=== PATIENT | female | born 1970 | race African-American/Black ===

== ENCOUNTER 2018-12-31 18:22 | Inpatient (IN) | payer OTHER ==
[~2018-12-31] VITALS: Ht 180.3 cm; Wt 71.5 kg
[2018-12-31] VITALS (27 sets, daily range): BP systolic 62–114; BP diastolic 21–58
[2018-12-31 18:49] LABS: BE(vivo) -29.8 mmol/L (-2 to +3); HCO3 3.5 mmol/L (22.0-26.0); PO2 VENOUS 49.9 mmHg (35.0-45.0)
[2018-12-31 18:52] LABS: HEMATOCRIT 43.1 % (37.0-47.0); MCH 29.7 pg (26.0-34.0); MCHC 25.5 g/dL (28.0-37.0); MCV 116.1 fL (80.0-100.0); PLATELET COUNT 234 thou/uL (150-400); RBC 3.71 mil/uL (4.20-5.00); RDW 16.9 % (10.5-14.5); WBC 25.3 thou/uL (4.0-11.0)
[2018-12-31 19:03] LABS: BUN 86 mg/dL (7-18); CALCIUM 8.7 mg/dL (8.5-10.1); CHLORIDE 84 mmol/L (98-107); CREATININE 13.5 mg/dL (0.6-1.0); SODIUM 124 mmol/L (136-145)
[2018-12-31 19:07] LABS: ANION GAP 35 mmol/L (7-16)
[2018-12-31 19:11] LABS: CO2 < 5 mmol/L (21-32)
[2018-12-31 19:18] LABS: GLUCOSE 1088 mg/dL (74-106)
[2018-12-31 19:41] LABS: ABSOLUTE NEUTROPHILS 19.5 thou/uL (1.4-8.2); MYELOCYTES 1 %
[2018-12-31 19:42] LABS: ANISOCYTOSIS 1+; BURR CELLS OCCASIONAL; MACROCYTES 3+
[2018-12-31] MEDS ORDERED: ATORVASTATIN CA40 MG PO (19:47)
[2018-12-31] MEDS ORDERED: MAPAP325 MG PO (19:47)
[2018-12-31] MEDS ORDERED: GLUCAGON EMERGEN1 MG SUBQ (19:48)
[2018-12-31] MEDS ORDERED: PEPCID20 MG PO (19:48)
[2018-12-31] MEDS ORDERED: HYDRALAZINE 2525 MG PO (19:49)
[2018-12-31] MEDS ORDERED: LASIX 80 MG TAB80 MG PO (19:50)
[2018-12-31] MEDS ORDERED: ASPIR 8181 MG PO (19:59)
[2018-12-31] MEDS ORDERED: LEVEMIR SUBQ (20:00)
[2018-12-31] MEDS ORDERED: LOPRESSOR100 M1 PO (20:00)
[2018-12-31] MEDS ORDERED: NORVASC5 MG PO (20:01)
[2018-12-31] MEDS ORDERED: NEPHRO-VITE TA0.8 MG PO (20:01)
[2018-12-31] MEDS ORDERED: NOVOLOG100 UNIT/1 SUBQ ×2 (20:02→20:03)
[2018-12-31] MEDS ORDERED: SENSIPAR 30 MG30 M1 PO ×2 (20:03→20:04)
[2018-12-31] MEDS ORDERED: VELTASSA16.8 GM PO (20:04)
[2018-12-31 20:53] LABS: BUN 84 mg/dL (7-18); CHLORIDE 91 mmol/L (98-107); CREATININE 12.8 mg/dL (0.6-1.0)
[2018-12-31 20:55] LABS: ANION GAP 36 mmol/L (7-16)
[2018-12-31 20:57] LABS: SODIUM 132 mmol/L (136-145)
[2018-12-31 20:58] LABS: CO2 < 5 mmol/L (21-32); GLUCOSE 929 mg/dL (74-106)
--- NOTE | 2018-12-31 23:35 | NUR ---
ADMISSION NOTE: PT ON THE ARRIVED ON THE UNIT @ 2024 FROM ED WITH WOLFGANG RN. PT ALERT AND ORIENTED BUT VERY LETHARGIC AND DROWSY. AT THIS TIME, VSS. INSULIN ALREADY INFUSING WHEN PT ARRIVED ON THE UNIT. DR MARIA AT BEDSIDE TO SEE PATIENT. VERBAL ORDER GIVEN TO ME BY DR MRAIA ABOUT NOT STARTING PT ON MAINTENANCE FLUIDS PER DKA PROTOCOL, THAT HE WANTS HIGH SUGARS TO BE TREATED WITH ONLY INSULIN. BP STARTS TO TANK WITH DIALYSIS 70'S/40'S, [address] MARIA, BP UP TO ONLY 80'S/40'S. LEVOPHED GTT STARTED PER DR MARIA ORDERS. WILL CONT TO FOLLOW AND IMPLEMENT ORDERS.
[2019-01-01] VITALS (103 sets, daily range): BP systolic 79–139; BP diastolic 26–84
[2019-01-01 00:45] LABS: MAGNESIUM 1.9 mg/dL (1.8-2.4); PHOSPHORUS 1.8 mg/dL (2.5-4.9)
[2019-01-01 00:47] LABS: ALBUMIN 3.3 g/dL (3.4-5.0); CALCIUM 8.5 mg/dL (8.5-10.1); PHOSPHORUS 1.9 mg/dL (2.5-4.9)
[2019-01-01 00:48] LABS: CREATININE 3.7 mg/dL (0.6-1.0)
[2019-01-01 04:32] LABS: ALBUMIN 3.4 g/dL (3.4-5.0); CALCIUM 8.7 mg/dL (8.5-10.1); PHOSPHORUS 2.7 mg/dL (2.5-4.9); POTASSIUM 3.8 mmol/L (3.5-5.1)
[2019-01-01 04:36] LABS: HEMATOCRIT 31.7 % (37.0-47.0); HEMOGLOBIN 9.7 gm/dL (12.0-15.0); MCH 28.6 pg (26.0-34.0); MCHC 30.7 g/dL (28.0-37.0); RBC 3.4 mil/uL (4.20-5.00); RDW 15.2 % (10.5-14.5); WBC 19.2 thou/uL (4.0-11.0)
[2019-01-01 04:41] LABS: CREATININE 6.4 mg/dL (0.6-1.0)
[2019-01-01 04:44] LABS: MCV 93.1 fL (80.0-100.0)
--- NOTE | 2019-01-01 05:52 | NUR ---
ASSUMED CARE @ 202412/31/18, PT ASSESSMENT AND VSS COMPLETE PER ICU PROTOCOL. PT ALERT AND ORIENTED TO PERSON AND SITUATION, DISORIENTED TO PLACE AND TIME, PT APPEARS TO BE CONFUSED AND CONSTANTLY REPEATS RESPONSES WHEN AWAKE. PT MAKE SENSE INTERMITTENTLY. FENTANYL GIVEN FOR PAIN DURINF THIS SHIFT. PT SR-ST ON THE MONITOR, PT ON LEVOPHED GTT, MAP GOAL>60 LEFT HAND APPEARS TO BE HARD AND FIRM WHEN COMPARED TO THE RIGHT HAND. PT ON RA SATS IN THE HIGH 90'S, NO SIGNS OF SOA. PT APPEARS TO BE ANURIC, PT HAD EMERGENT DIALYSIS LAST NIGHT/ THIS AM. PT IS STILL ON THE INSULIN DRIP, Q1H ACCUCHECKS IN PLACE. PLAN OF CARE- CONT TO MONITOR BS AND BP AND TITRATE DRIPS ACCORDINGLY. CRITICALS CALLED TO [facility] AND DR MARIA GIVEN AN UPDATE ON STATUS THIS AM.
[2019-01-01 07:57] LABS: ALBUMIN 3.5 g/dL (3.4-5.0); CALCIUM 8.8 mg/dL (8.5-10.1); CREATININE 6.6 mg/dL (0.6-1.0); MAGNESIUM 1.9 mg/dL (1.8-2.4); PHOSPHORUS 3.1 mg/dL (2.5-4.9); POTASSIUM 4.4 mmol/L (3.5-5.1)
--- NOTE | 2019-01-01 08:03 | EKG ---
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 : 1970 Requested By: Say Luz Order Number: [id number] MD: Michael Schwartz Measurements Intervals Pettibone Rate: 94 P: 242 MT: 178 QRS: 141 QRSD: 111 T: 3 QT: 397 QTc: 497 Interpretive Statements Sinus rhythm Probable right ventricular hypertrophy Consider electrolyte abnormality Borderline prolonged QT interval Baseline wander in lead(s) V5 No previous ECG available for comparison Electronically Signed On 01-01-2019 8:02:56 MOLD FORMS BUILDER by Michael Schwartz [email or web address] <ELECTRONICALLY SIGNED> By: Michael Schwartz MD, [facility] 01/01/19 0802 1845 1845 Michael Schwartz MD, [facility] /EPI
[2019-01-01 09:00] LABS: PROTIME 10.7 Seconds (9.3-11.4)
[2019-01-01 12:06] LABS: HEPATITIS B SURFACE AG Negative (Negative)
--- NOTE | 2019-01-01 15:19 | NUR ---
CM ASSESSMENT: CASE OPENED FOR DC PLANNING. CLINICAL INFO REVIEWED. PT ADMITTED FROM LTC AT [facility] WITH DKA. PT SOMEWHAT CONFUSED TODAY PER NURSING AND SPOKE WITH PT'S SPOUSE JALIL AVALOS BY PHONE. PT HAS LIVED IN LTC AT FACILITY SINCE JUNE 2018. HX DM UNCONTROLLED, HTN, STROKE AND ESRD HD AT [facility]. AMBULATES WITH WALKER OR USES W/C. PLAN TO RETURN TO [facility] AT DC. DCPLANNER FAXED CLINICAL UPDATE TO FACILITY ADMISSIONS AND SPOKE WITH
--- NOTE | 2019-01-01 16:24 | NUR ---
PATIENT REMAINS AWAKE AND CONFUSED, BUT ABLE TO MAKE NEEDS KNOW. SPOKE WITH PATIENT'S AND HE STATES THAT THIS IS THE PATIENT'S NORMAL MENTATION ESPECIALLY WHEN SHE IS ILL. PATIENT IS STILL ON A LOW DOSE OF LEVOPHED FOR BLOOD PRESSURE SUPPORT. HEART RATE STABLE. PATIENT ON RA WITH SATS IN THE UPPER 90'S AND DENIES ANY RESP DISTRESS. BLOOD SUGARS ARE NOTED AND TREATED ORDERED.PATIENT LEFT ARM IS SWOLLEN/WARM/ AND HARD, FISTULAGRAM SCHEDULED FOR TOMORROW. + BRUIE AND THRILL OF LUE FISTULA. PATIENT ANURIC THIS SHIFT. PATIENT CALLED TO CHECK ON PATIENT. NO FURTHER CONCERNS AT THIS TIME. WILL CONTINUE TO MONITOR AND CARE PER PLAN OF CARE.
[2019-01-02] VITALS (35 sets, daily range): BP systolic 96–139; BP diastolic 40–67
--- NOTE | 2019-01-02 02:47 | NUR ---
PT IS AOX2, CONFUSED. FOLLOW COMMANDS. C/O THROAT PAIN, PAIN MEDS GIVEN. AFEBRILE. ON LEVOPHED FOR BP SUPPORT. TITRATING TO KEEP MAP 60. ANURIC. NPO AFTER MIDNIGHT FOR IR PROEDURE. PT EDUCATED ABOUT NPO STATUS. SLOWLY PROGRESSING TOWARDS GOALS. WILL CONTINUE TO MONITOR.
[2019-01-02 05:26] LABS: ABSOLUTE NEUTROPHILS 9.6 thou/uL (1.4-8.2); BASOPHILS 0.2 % (0.0-2.0); EOSINOPHILS 0.3 % (0.0-3.0); HEMATOCRIT 32.4 % (37.0-47.0); HEMOGLOBIN 9.8 gm/dL (12.0-15.0); LYMPHOCYTES 11.5 % (24.0-44.0); MCH 29.2 pg (26.0-34.0); MCHC 30.2 g/dL (28.0-37.0); MCV 96.6 fL (80.0-100.0); MONOCYTES 7.3 % (1.0-8.0); PLATELET COUNT 140 thou/uL (150-400); POLYS 80.7 % (36.0-66.0); RBC 3.35 mil/uL (4.20-5.00); RDW 15.7 % (10.5-14.5); WBC 11.9 thou/uL (4.0-11.0)
[2019-01-02 06:02] LABS: ALBUMIN 3.2 g/dL (3.4-5.0); CALCIUM 8.7 mg/dL (8.5-10.1); TOTAL BILIRUBIN 0.5 mg/dL (<0.1-1.0); TOTAL PROTEIN 6.4 g/dL (6.4-8.2)
[2019-01-02 06:10] LABS: CREATININE 8.4 mg/dL (0.6-1.0); POTASSIUM 6.7 mmol/L (3.5-5.1)
[2019-01-02 07:21] LABS: LARGE PLATELETS OCCASIONAL
--- NOTE | 2019-01-02 08:03 | NUR ---
CRITICAL LAB VALUES COMMUNICATED TO DR. HASSAN. ORDERS RECIEVED AND IMPLEMENTED. WILL CONTINUE TO MONITOR.
--- NOTE | 2019-01-02 09:03 | NUR ---
Assess for dx DKA. From [facility]. Hx dm, ESRD/dialysis, cva and HTN. BG initially >1000 and have been decreasing. Insulin drip discontinued. On dialysis today. Tolerating meals. Unknown wt hx. Low nutrition risk at this time
--- NOTE | 2019-01-02 12:12 | NUR ---
FOLLOWING FOR DC PLANNING. CLINCIAL INFO REVIEWED. DIALYSIS THIS AM AND WILL HAVE FISTULAGRAM TODAY. PER HOSPITALIST, POSSIBLE WEEKEND DC. 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
--- NOTE | 2019-01-02 14:08 | NUR ---
DCP FAXED DIALYSIS FLOW SHEETS TO [facility] SPOKE WITH HALI IN ADM. THAT ANTICIPATE DC OVER THE WEEKEND. PT. TO HAVE DIALYSIS ON SATURDAY.
--- NOTE | 2019-01-02 14:27 | NUR ---
TO UNIT BY ICU BED AT 1400, ACCOMPANIED BY RNX2. TRANSFERRED TO OUR BED. MAKES NO COMPLAINTS. ORIENTED TO UNIT, ROOM. WILL CONTINUE TO FOLLOW.
--- NOTE | 2019-01-02 15:30 | NUR ---
ASSUMED CARE OF PATIENT AT 0700, PT IS A/O TIMES 3-4. C/O SORE THROAT AND CEPACOL GIVEN. PT HAD DIALYSIS TODAY WITH B/P BEING STABLE DURING THE PROCEDURE. PT TO IR FOR A FISTULOGRAM POST DIALYSIS. ORDERS RECIEVED TO TRANSFER PT OUT OF ICU WHILE PT IS IN IR. REPORT GIVEN TO ACCEPTING NURSE AND IR NOTFIED OF PT TRANSFER. VSS AND PT AFIBRILE WHILE UNDER THIS NURSE CARE.
[2019-01-03 01:07] LABS: ALBUMIN 3.2 g/dL (3.4-5.0); CALCIUM 8.8 mg/dL (8.5-10.1)
[2019-01-03 01:14] LABS: CREATININE 5.9 mg/dL (0.6-1.0)
[2019-01-03 04:29] VITALS: BP 101/61
--- NOTE | 2019-01-03 04:50 | NUR ---
Patient making slow progress towards outcome goals, barely touched dinned, bedtime blood sugars elevated confirmed by labs. Reported to Martin Winn SECURITY OPERATIONS MANAGER with orders for extra insulin and blood sugars every 2 hours and treat per moderate slidind scale until bs + or <250. Patients appetite poor. Getting tired of multiple finger sticks and Lab draws, explained need to patient who expressed understanding. Cepacol lozenges and zofran given for sorethroat and nausea with some relief. Left arm swelling unchanged. Fall precautions in place.
[2019-01-03 05:38] LABS: ALBUMIN 3.3 g/dL (3.4-5.0); CREATININE 6.1 mg/dL (0.6-1.0); PHOSPHORUS 3.6 mg/dL (2.5-4.9); POTASSIUM 4.3 mmol/L (3.5-5.1)
[2019-01-03 08:04] VITALS: BP 137/73
[2019-01-03 11:22] VITALS: BP 132/72
--- NOTE | 2019-01-05 07:36 | HC ---
[facility] [address] [place] [address] CONSULTATION Name: MARIELA MERAZ Room #: 353-P [facility].#: [id number] Admission: 12/31/18 Attend Phys: Berhane Lang MD Discharge: 01/03/19 Date of : 68 Report #: [id number] THIS REPORT FOR: //name// CC: Berhane Castilloadelina Sosa Maria Luisa DATE OF SERVICE: 12/31/2018 NEPHROLOGY CONSULTATION REASON FOR CONSULTATION: End-stage renal disease with critical hyperkalemia. HISTORY OF PRESENT ILLNESS: This is a 48-year-old female who has end-stage renal disease. She lives at [facility] and was to get her usual dialysis at [facility] today. That did not occur. Apparently, she said her blood sugar was too low, so they would not do a dialysis. She ended up coming to the Emergency Room tonight. On admission, she was alertly noted by the Emergency Room staff to be in an abnormal heart rhythm. She was treated with some IV calcium as well as some sodium bicarbonate. Labs were drawn. Since that time, her labs have come back showing a potassium of 9.0, a bicarbonate less than 5, a BUN of 86, creatinine 13.5, and glucose 1088 with a venous blood gas 6.81, pCO2 of 22, pO2 of 49.9 and lactate of 8.69. In talking to the patient, she is a bit obtunded. She says she has been on dialysis for the past 2 years. She has diabetes mellitus as the etiology. She has been dialyzing at [facility] and living at [facility]. She dialyzes using a left upper arm access. When I asked when she last dialyzed since she missed this morning's dialysis, she first said Saturday, which would have been 5 days ago and then she said Saturday, which would have been 2 days ago, but I am uncertain which of those is really the case. PAST MEDICAL HISTORY: Longstanding diabetes mellitus. Also hypertension. She apparently has had a CVA. Also some seizure disorder. She cannot tell me exactly why she lives at [facility] only that her blood sugars are always so labile that she needed care in a Care Center. She is a bit uncertain as to prior surgeries. It looks like she has had a forearm fistula and now a left upper arm graft in place for dialysis access. I do not see much else in the way of scars on her chest or abdomen. MEDICATIONS: Amlodipine 5 mg daily, aspirin 81 mg daily, atorvastatin 40 mg daily, cinacalcet 30 mg 3 days a week, famotidine 20 mg daily, Nephro-Marley 1 daily, furosemide 80 mg b.i.d., hydralazine 50 mg t.i.d., insulin both long and short-acting, metoprolol 100 mg b.i.d., and Veltassa suggesting she has longstanding problems of hyperkalemia. [address] [address] CONSULTATION Name: MARIELA MERAZ Lupe Room #: 353-P [facility] IN M.R.#: [id number] Admission: 12/31/18 Attend Phys: Berhane Lang MD Discharge: 01/03/19 Date of : 68 Report #: [id number] ALLERGIES: DEON INHIBITORS AND SULFA. FAMILY HISTORY: Noncontributory. SOCIAL HISTORY: Lives at [facility] as noted above. REVIEW OF SYSTEMS: She has felt sick in her stomach, cannot clearly tell me if she has had nausea, vomiting or diarrhea. Unaware of dyspnea or cough. Denies pain at this time and again is still somewhat obtunded. PHYSICAL EXAMINATION: GENERAL: A 48-year-old female who does awaken, but is slow to react again mildly obtunded. VITAL SIGNS: Blood pressure 126/48, heart rate is 117 and the monitor now shows a narrow complex QRS, oxygen saturation 100%, temperature 97.9 and respiratory rate 19. HEENT: Shows pupils are equal and reactive. Sclerae nonicteric. Oral mucosa is dry. NECK: Veins are not distended. Neck is supple. CHEST: Clear bilaterally. HEART: Has a regular tachycardia. ABDOMEN: Soft. Bowel sounds are diminished. No distention, tenderness, organomegaly or masses. EXTREMITIES: Show no lower extremity edema. She has a left upper arm AV graft in place, which is pulsatile. IMAGING: Chest x-ray is clear. LABORATORY DATA: Sodium 124, potassium 9.0, chloride 84, bicarbonate 5, BUN 86, creatinine 13.5, glucose 1088 and calcium 8.7. White count 25.3, hemoglobin 11.0, hematocrit 43.1, and platelets 234,000. Differential: 77 neutrophils, 7 monocytes and 1 myelocyte. ASSESSMENT: 1. End-stage renal disease with critical hyperkalemia. I am uncertain why she missed dialysis earlier today, but it obviously put her in a life threatening situation. Her EKG showed widened QRS complexes and high T waves. She got the calcium and the albuterol. We are giving her an amp of bicarbonate now. Her complex has already narrowed, which is a favorable sign. We will be performing emergent hemodialysis on her to help correct her potassium and her bicarbonate. 2. Profound hyperglycemia with severe metabolic acidosis, suspect ketoacidosis. She will need an insulin drip to get this corrected. 3. Metabolic acidosis, some component of DKA certainly some lactic acidosis and some acidosis due to her renal failure. This should start to correct with her dialysis with a normal 35 bicarbonate dialysate. 4. Leukocytosis. She did not have a fever on admission. I do not see any [facility] [address] [place] [address] CONSULTATION Name: MARIELA MERAZ Room #: 353-P [facility] IN [facility].#: [id number] Admission: 12/31/18 Attend Phys: Berhane Lang MD Discharge: 01/03/19 Date of : 68 Report #: [id number] terese signs of infection, but we will need to get blood cultures and certainly screen for sepsis and that will be difficult to differentiate at this point. 5. Prior cerebrovascular accident. PLAN: 1. We have given her some additional IV bicarbonate. 2. We have her on the way to the ICU and we will perform emergent dialysis tonight with 2 potassium dialysate for 4 hour run. We will see how her blood pressure does. I will not plan on any ultrafiltration. 3. Insulin drip. 4. Follow up labs after dialysis. She may well need dialysis again in the morning. 5. Blood cultures. 6. We will follow along closely in the care of this critically ill patient. <ELECTRONICALLY SIGNED> By: Ian Glass MD 01/05/19 0736 10 0306 Ian Glass MD /merle
== END 2019-01-03 17:07 | DRG 252 ==
LOC: ER 18:22 → ICU 19:20 → EROBS 19:20 → ICU 20:07 → TBA 01-01 09:47 → ICU 01-01 09:55 → TBA 01-01 10:00 → ICU 01-01 10:04 → 3W 01-02 13:34
PROVIDERS: Hospitalist; Internal Medicine; Internal Medicine Nephrology; Nurse Practitioner Family; Radiology Vascular & Interventional Radiology; Student in an Organized Health Care Education/Training Program; ADMIT Hospitalist
DX: I87.1 Compression of vein (principal); E11.10 Type 2 diabetes mellitus with ketoacidosis without coma; N18.6 End stage renal disease; E87.1 Hypo-osmolality and hyponatremia; I12.0 Hypertensive chronic kidney disease with stage 5 chronic kidney disease or end stage renal disease; E11.22 Type 2 diabetes mellitus with diabetic chronic kidney disease; E87.5 Hyperkalemia; Z88.2 Allergy status to sulfonamides; G40.909 Epilepsy, unspecified, not intractable, without status epilepticus; E78.5 Hyperlipidemia, unspecified; D72.829 Elevated white blood cell count, unspecified; Z79.899 Other long term (current) drug therapy; Z86.73 Personal history of transient ischemic attack (TIA), and cerebral infarction without residual deficits; Z99.2 Dependence on renal dialysis
CPT/HCPCS: 10078; 10779; 32100

== ENCOUNTER 2021-12-27 19:05 | Inpatient (IN) | payer OTHER ==
[~2021-12-27] VITALS: Ht 180.3 cm; Wt 78.2 kg
--- NOTE | ~2021-12-27 | EMS ---
[facility] [address] [place] [address] EMS Patient Care Report Name: MARIELA MERAZ Room #: 355-P [facility] IN M.R.#: [id number] Admission: 12/27/21 Attend Phys: Nate Lord Discharge: 01/01/22 Date of : 68 Report #: [id number] THIS REPORT FOR: //name// Report Transmitted: 01/03/2022 12:34 EMS Care Summary [place], [place]/[facility] Incident [id number] @ 12/27/2021 18:26 [id number] [place] [address] 116 Patient MARIELA MERAZ Female, 51 Years 1970 Patient Address [address] [place] [address] [address] [place] [address] Patient History End Stage Renal Disease (ESRD),Hyperkalemia,Hyperglycemia,Novel Coronavirus (COVID-19), Patient Allergies Sulfa, Patient Medications Amitriptyline, Levemir, Metoprolol, Atorvastatin, Gabapentin, Novolog, Chief Complaint Malaise Disposition Transported No Lights/[place] Dispatch Reason Sick Person Transported To [facility] Narrative M528 dispatched for a 51 year old female conscious and breathing. Arrive at the scene patient is located inside the care home laying down in bed. Patient [facility] [address] [place] [address] EMS Patient Care Report Name: MARIELA MERAZ Room #: 355-P [facility] IN [facility]#: [id number] Admission: 12/27/21 Attend Phys: Jonyoscar Hadley Risa Discharge: 01/01/22 Date of : 68 Report #: [id number] acknowledges EMS presence is GCS 15, AAOX4. Patient has a patent airway is breathing with strong regular radial pulses present. Skin is pink warm and dry. Staff advises that the patient is weaker than normal and has COVID 19 and is to go to [facility] for further evaluation. Patient is moved to the stretcher and secured in the fielders position using seatbelts and rails. Patient is moved to the ambulance and VS are obtained. Transport is initiated. Assessment conduct is unremarkable. Arrival at the receiving facility patient is offloaded and taken to the ER room. RN is given report and transfer of care is completed and signatures obtained. M528 returns to service Initial Vitals @18:33P: 93,R: 18,BP: 164/84,Pain: 0/10,GCS: 15,Glucose: 270,SpO2: 98,Revised Trauma: 12, @18:39P: 94,R: 18,BP: 146/70,Pain: 0/10,GCS: 15,SpO2: 99,Revised Trauma: 12, Assessments @18:32MENTAL:No Abnormalities,SKIN:No Abnormalities,HEENT:Head/Face: No Abnormalities,Eyes: No Abnormalities,Neck/Airway: No Abnormalities,LUNG SOUNDS:General: No Abnormalities,Left Upper: No Abnormalities,Right Upper: No Abnormalities,Left Lower: No Abnormalities,Right Lower: No Abnormalities,ABDOMEN:General: No Abnormalities,Left Upper: No Abnormalities,Right Upper: No Abnormalities,Left Lower: No Abnormalities,Right Lower: No Abnormalities,PELVIS//GI:No Abnormalities,EXTREMITIES:Left Arm: No Abnormalities,Right Arm: No Abnormalities,Left Leg: No Abnormalities,Right Leg: No Abnormalities,PULSE:Radial: 2+ Normal,NEURO:No Abnormalities, Impression Generalized Weakness Procedures @18:32 ALS Assessment Response: UnchangedSucceeded Timeline 18:22,Call Received 18:22,Dispatch Notified 18:26,Dispatched 18:27,En Route 18:29,On Scene 18:31,At Patient 18:32,ALS Assessment,Response: UnchangedSucceeded, 18:33,BP: 164/84 M,PULSE: 93,RR: 18 R,SPO2: 98 Ox,ETCO2: ,B,PAIN: 0,GCS: [address] [place] [address] EMS Patient Care Report Name: MARIELA MERAZ Room #: 355-P [facility] IN .R.#: [id number] Admission: 12/27/21 Attend Phys: Nate Lord Discharge: 01/01/22 Date of : 68 Report #: [id number] 15, 18:39,BP: 146/70 M,PULSE: 94,RR: 18 R,SPO2: 99 Ox,ETCO2: ,BG: ,PAIN: 0,GCS: 15, 18:41,Depart Scene 18:48,At Destination 18:52,Call Closed Disclaimer v1.1 Copyright 2021 [place]. com. cn This EMS Care Summary contains data elements from the applicable legal record (which may be displayed differently). It is designed to provide pertinent information for the following purposes: continuity of care, clinical quality, and state data reporting. The complete legal record is available to ED staff and administrators of the receiving hospital in [employer] Patient Tracker. All data is provided "as is."
[~2021-12-27 19:05] MED LIST: ASPIR 8181 MG PO; ATORVASTATIN CA40 MG PO; CALCIUM ACETAT667 MG PO; CEFUROXIME250 MG PO; GLUCAGON EMERGEN1 MG SUBQ; HYDRALAZINE 2525 MG PO; LASIX 80 MG TAB80 MG PO; LEVEMIR SUBQ; LOPRESSOR100 M1 PO; LOPRESSOR50 PO; MAPAP325 MG PO; MIDODRINE HCL 55 M1 PO; NEPHRO-VITE TA0.8 MG PO; NEURONTIN 300M300 M2 PO; NORVASC5 MG PO; NOVOLOG100 UNIT/1 SUBQ; PEPCID20 MG PO; SENSIPAR 30 MG30 M1 PO; VELTASSA16.8 GM PO; VITAMIN D5000 UNIT PO
[2021-12-27 19:11] VITALS: BP 151/61
[2021-12-27 21:35] LABS: ABSOLUTE NEUTROPHILS 9.1 thou/uL (1.4-8.2); BASOPHILS 0.6 % (0.0-2.0); EOSINOPHILS 0.2 % (0.0-3.0); HEMATOCRIT 36.4 % (37.0-47.0); HEMOGLOBIN 10.7 gm/dL (12.0-15.0); MCH 27.8 pg (26.0-34.0); MCHC 29.5 g/dL (28.0-37.0); MCV 94.4 fL (80.0-100.0); MONOCYTES 11.4 % (1.0-8.0); PLATELET COUNT 149 thou/uL (150-400); POLYS 72.8 % (36.0-66.0); RBC 3.86 mil/uL (4.20-5.00); RDW 16.6 % (10.5-14.5); WBC 12.5 thou/uL (4.0-11.0)
[2021-12-27 21:53] LABS: ALBUMIN 2.6 g/dL (3.4-5.0); CALCIUM 8.5 mg/dL (8.5-10.1); CREATININE 16.1 mg/dL (0.6-1.0); MAGNESIUM 2.6 mg/dL (1.8-2.4); POTASSIUM 5.3 mmol/L (3.5-5.1); TOTAL BILIRUBIN 0.6 mg/dL (0.2-1.0); TOTAL PROTEIN 6.7 g/dL (6.4-8.2)
--- NOTE | 2021-12-27 23:27 | NUR ---
REPORT CALLED TO FLOOR, GIVEN TO MICHAEL COLON
[2021-12-27 23:37] VITALS: BP 152/50
--- NOTE | 2021-12-28 03:48 | NUR ---
PT ADMITTED TO 3W FROM ED, ARRIVED TO UNIT ACCOMPANIED BY ED STAFF AROUND 2355. ADMISSION ASSESSMENTS CHARTED. RECEIVED NOTIFICATION OF CRITICAL PROCALCITONIN LEVEL, PROVIDER JAVA PROJECT MANAGER NOTIFIED, RECEIVED NEW ORDERS TO START VANCOMYCIN AND ZOSYN TO BE DOSED PER PHARMACY. LOADING DOSES OF EACH GIVEN. ALSO RECEIVED ORDERS FOR STAT CT OF CHEST TO RULE OUT PE DUE TO ELEVATED D-DIMER. PT WAS TRANSPORTED TO CT FOR EXAM; HOWEVER, ADEQUATE IV ACCESS FOR CONTRAST WAS NOT ABLE TO BE OBTAINED DUE TO POOR VASCULATURE. PROVIDER NOTIFIED. WILL NOTIFY DAY SHIFT FOR IV TEAM TO ATTEMPT AGAIN FIRST THING IN THE AM. WILL CONTINUE TO OBSERVE FOR CHANGES
[2021-12-28 04:06] VITALS: BP 134/71
[2021-12-28 05:47] LABS: HEMATOCRIT 37.5 % (37.0-47.0); HEMOGLOBIN 11.2 gm/dL (12.0-15.0); MCH 28.3 pg (26.0-34.0); MCHC 29.9 g/dL (28.0-37.0); MCV 94.8 fL (80.0-100.0); RBC 3.95 mil/uL (4.20-5.00); RDW 16.2 % (10.5-14.5); WBC 9.9 thou/uL (4.0-11.0)
[2021-12-28 06:52] LABS: CALCIUM 8.7 mg/dL (8.5-10.1); CREATININE 16.8 mg/dL (0.6-1.0)
[2021-12-28 06:54] LABS: POTASSIUM 6.8 mmol/L (3.5-5.1)
[2021-12-28 07:37] VITALS: BP 136/71
[2021-12-28 08:50] VITALS: BP 109/38
[2021-12-28 15:12] VITALS: BP 162/74
[2021-12-28 17:00] VITALS: BP 140/80
--- NOTE | 2021-12-28 18:54 | NUR ---
RN ASSUMED PT'S CARE AT 0700AM, PT IS A&OX3 ( PERSON, PLACE AND TIME), PT IS ON ROOM AIR, PT HAS DIALYSIS TODAY, PT IS TOLERAIVED , REMOVAL 2.5L FLUID, PT IS CONTINUING IV ABX AND TREAT COVID MEDICATION, PT DENIES PAIN AND SOB AT DAY SHIFT.
[2021-12-28 19:37] VITALS: BP 109/38
[2021-12-29 02:06] LABS: GLYCOHEMOGLOBIN (HGB A1C) 9.9 % (4.8-5.6)
[2021-12-29 02:49] VITALS: BP 158/76
--- NOTE | 2021-12-29 03:57 | NUR ---
ASSUMED PT CARE AT 1900. PT IS ALERT & ORIENTED X 2-3, SHE HAS PERIODS OF CONFUSION AND IS SLOW TO ANSWER QUESTIONS. PT IS ANURIC. PT IS INCONTINENT OF BOWEL, PT HAD 2 BM'S THIS SHIFT. CURRENTLY ON 2L O2 NC AND O2 SATS > 95%. VSS AFEBRILE. ALL NEEDS ARE MET AT THIS TIME. WILL CONTINUE TO MONITOR FOR ANY CHANGES.
[2021-12-29 07:34] VITALS: BP 159/46
--- NOTE | 2021-12-29 08:41 | HC ---
[facility] [address] [place] [address] CONSULTATION Name: MARIELA MERAZ Room #: 355-P [facility] IN .R.#: [id number] Admission: 12/27/21 Attend Phys: Nate Lord Discharge: Date of : 68 Report #: [id number] THIS REPORT FOR: cc: Judit Thompson,Jorge Santos MD ~ DATE OF SERVICE: 12/28/2021 INFECTIOUS DISEASE CONSULTATION ATTENDING PHYSICIAN: Dr. Lord. REASON FOR EVALUATION: COVID-19 infection. HISTORY OF PRESENT ILLNESS: Chart reviewed. The patient examined. This is a 51-year-old woman with diabetes mellitus type 1. This has been complicated by end-stage renal disease, on hemodialysis, last number of years. She apparently tested positive for COVID. This prompted her to miss the dialysis. Today, she presented to the Emergency Room. She notes fatigue. She denies significant dyspnea. Does have generalized weakness. Initial chest x-ray did show patchy bilateral interstitial opacities. Influenza antigen testing was negative. She was found to be hyponatremic with a markedly elevated blood sugar 427. D-dimer of 2.0, lactic acid 0.5. Did have an elevated procalcitonin 17.71. Blood cultures collected at time of admission are sterile thus far. PCR for MRSA was negative. She was empirically started on combination therapy with vancomycin and Zosyn. At this point, she denies pulmonary related complaints. She is now maintained on supplemental oxygen. ALLERGIES: SULFA, DEON INHIBITORS. CURRENT MEDICATIONS: Include midodrine, Cinacalcet, atorvastatin, multivitamin, metoprolol, cholecalciferol, aspirin, ascorbic acid, sevelamer, insulin, pantoprazole, gabapentin, zinc, p.r.n. analgesics, antiemetics. PAST MEDICAL HISTORY: As noted above, diabetes mellitus type 2, complicated by end-stage renal disease, on dialysis; previous stroke, reflux, hypertension, hyperlipidemia, epilepsy. SOCIAL HISTORY: Nonsmoker, occasional ethanol, no illicit drug use. FAMILY HISTORY: Noncontributory. REVIEW OF SYSTEMS: Otherwise, as noted above. PHYSICAL EXAMINATION: GENERAL: She is chronically ill-appearing, under[place]. [place] [address] CONSULTATION Name: MARIELA MERAZ Room #: 355-[facility] IN [facility].#: [id number] Admission: 12/27/21 Attend Phys: Nate Lord Discharge: Date of : 68 Report #: [id number] lucid, cooperative, mild to moderate distress. VITAL SIGNS: Temperature 98.1, pulse 91, respirations 16, blood pressure 136/71. SKIN: Warm, dry, no rashes. HEENT: Normocephalic. Extraocular muscles intact. NECK: Supple. LUNGS: Diminished breath sounds bilaterally. There is some bilateral crackles at the bases. HEART: Regular, borderline tachycardia. I hear a soft systolic murmur. ABDOMEN: Soft, no apparent peritoneal signs. GENITOURINARY AND RECTAL: Deferred. LABORATORY DATA: MRSA screen was negative. Blood cultures sterile thus far. Electrolytes: Sodium 129, potassium 6.8, chloride 94, bicarbonate is 13, anion gap of 22, BUN and creatinine 98 and 16.8, glucose of 533. CBC: White count of 9.9, H and H 11.2 and 37.5, platelets of 96. Ferritin elevated at 1542. Procalcitonin 17.71. Sed rate of 49. Lactic acid 0.5. ASSESSMENT AND PLAN: COVID-19 infection, complicated by pneumonitis. Secondly, diabetes mellitus with end-stage renal disease, on dialysis. We will continue empiric therapy with antibacterials. There is significant contraindications utilizing remdesivir at this point, although she has radiographic evidence, she denies dyspnea. I think it is reasonable to watch 24-48 hours and see how she clinically does. Continue to monitor expectantly. Add incentive spirometry. <ELECTRONICALLY SIGNED> By: Jorge Gamboa MD 12/29/21 0841 1405 [id number] Jorge Gamboa MD /nt
[2021-12-29 10:25] VITALS: BP 159/46
[2021-12-29 10:50] LABS: POTASSIUM 3.2 mmol/L (3.5-5.1)
[2021-12-29 10:51] LABS: CREATININE 9.7 mg/dL (0.6-1.0)
--- NOTE | 2021-12-29 14:50 | NUR ---
INITIAL ASSESSMENT: JHOAN reviewed chart and spoke with nursing and attending physician. Pt was admitted from [facility] due to weakness. Pt had positive COVID test in the ER and was placed in Enhanced Isolation. Per chart, pt has received the righTune COVID vaccination. Pt with hx CVA/HTN/DM and ESRD. Pt does go to dialysis MWF at the [facility]. Pt is afebrile and on 2L of O2. Possible weekend discharge. JHOAN spoke with pt via phone. Introduced role of JHOAN. Pt is alert/orientated x 4. Pt states she is in [facility] care at [facility]. Pt confirms plan is to return when medically stable. SW offered to update pt's family. Pt requested SW contact Benjy Mcguire ([phone]) to provide update. JHOAN left voice message for Benjy. SW faxed clinical info to [facility] for review. JHOAN left voice message for Cady in admissions to notif of possible weekend discharge. JHOAN spoke with [facility] dialysis clinic to notify of possible weekend discharge. Pt will be able to resume her regular dialysis schedule on Saturday. JHOAN spoke with Chikis, hospice plan administrator to provide update. Per Chikis, they are able to admit pt back over the weekend. Discharge ppwk to be faxed to [facility] and [facility] when available. [facility] to be contacted to coordinate discharge. JHOAN is following and available to assist as needed with discharge planning. COLONY-- ([phone]) [facility]--
[2021-12-29 15:34] VITALS: BP 178/80
--- NOTE | 2021-12-29 18:42 | NUR ---
PT A/O X 2-3. PT CONFUSED AT TIMES. PT HAD DIALYSIS TODAY, 3000 OFF. PT HAD 2 HYPOGLYCEMIC EVENTS TODAY, IN THE AM AND IN THE AFTERNOON, PROTOCOL ACTIVATED. DR GAVE ORDERS TO HOLD INSULIN FOR REST OF THE DAY. POOR APPETITE. ON 2 L NC. NO COMPLAINTS OF PAIN. FALL PRECAUTIONS IN PLACE. WILL CONTINUE TO MONITOR.
[2021-12-29 19:35] VITALS: BP 168/68
[2021-12-30 02:44] VITALS: BP 153/66
--- NOTE | 2021-12-30 04:47 | NUR ---
CARE ASSUMED AT 1900. PT IS ALERT & ORIENTED X 3, IS CALM AND COOPERATIVE. CURRENTLY ON 1L O2 VIA NC AND O2 SATS > 95%. O2 ON AND OFF INTERMITTENTLY. VSS AFEBRILE. INSULIN WAS NOT ADMINISTERED THIS SHIFT PER ORDERS. ALL NEEDS ARE MET AT THIS TIME. PT PROGRESSING TOWARDS POC GOALS. WILL CONTINUE TO MONITOR FOR ANY CHANGES.
[2021-12-30 05:44] LABS: POTASSIUM 3.2 mmol/L (3.5-5.1)
[2021-12-30 06:04] LABS: CALCIUM 8.8 mg/dL (8.5-10.1)
[2021-12-30 06:08] LABS: CREATININE 6.6 mg/dL (0.6-1.0)
[2021-12-30 07:45] VITALS: BP 114/50
[2021-12-30 10:27] VITALS: BP 114/50
[2021-12-30 15:35] VITALS: BP 126/92; BP 216/92
--- NOTE | 2021-12-30 18:14 | NUR ---
PT A/O X 4. PT ON RA. COMPLAINTS OF PAIN WHEN COUGHING. FALL PRECATIONS IN PLACE. WILL CONTINUE TO MONITOR.
[2021-12-30 20:30] VITALS: BP 150/65
[2021-12-31 04:45] VITALS: BP 129/52
--- NOTE | 2021-12-31 05:57 | NUR ---
PATIENT IS ALERT AND ORIENTED X3 THIS SHIFT. PATIENT IS ON ENHANCED PRECAUTION. PATIENT IS ON ROOM AIR. PATIENT IS MED/ SURGE TELE AND HAS BEEN RUNNING SINUS RHYTHM THIS SHIFT. PATIENT HAD HER LAST BM 12/30/2021. PATIENT HAS A RIGHT AV FISTULA AND IV'S IN BOTH HER LEFT CHEST AND LEFT UPPER ARM THAT ARE PATENT AND SALINE LOCKED. PATIENT WILL CONTINUE TO BE MONIORED.
[2021-12-31 08:02] VITALS: BP 143/56
[2021-12-31 10:02] VITALS: BP 143/56
[2021-12-31 15:41] VITALS: BP 141/56
--- NOTE | 2021-12-31 16:44 | NUR ---
ASSUMED PT CARE AT 0700. PT A/O X 4. PT ON RA WITH SATS ABOVE 95%. PT TO HAVE DIALYSIS TOMORROW (01/01/22). PT COMPLAINS OF CHEST PAIN WITH COUGHING, LITTLE RELIEF FROM MEDICATION. PT SLEEPING MOST OF DAY. PT HAD LOW GRADE FEVER IN AM, BUT AFEBRILE THIS AFTERNOON. FALL PRECAUTIONS IN PLACE. WILL CONTINUE TO MONITOR.
[2021-12-31 20:00] VITALS: BP 138/61
[2022-01-01 05:23] VITALS: BP 128/68
--- NOTE | 2022-01-01 06:39 | NUR ---
Patient is alert and oriented x3 this shift. she is unsure as to whom the president is. Patient is on enhanced precautions. sierranet is on room air. patient has two iv sites. one in her left upper chest, and one in her left ac. both iv sites are patent at the beginning of this shift. patient pulled out the IV site in the patients left upper chest. patient will continue to be monitored.
[2022-01-01 07:54] VITALS: BP 166/94
--- NOTE | 2022-01-01 14:11 | NUR ---
DISCHARGE NOTE: JHOAN reviewed chart and spoke with nursing and attending physician. Pt is medically stable for discharge back to [facility] today. JHOAN faxed discharge ppwk to [facility] and confirmed info was received with Cady in admissions. Pt will be using her skilled benefit upon her return. W/c van transportation scheduled for [id number] per facility's arrangements. JHOAN spoke with pt via phone to provide update and discuss discharge plan. Pt is aware and in agreement with discharge plan. JHOAN faxed clinical info and discharge ppwk to [facility] dialysis [facility]. Received fax confirmation. JHOAN let voice message for dialysis staff to notify of pt's discharge. Pt will resume her regular outpatient dialysis on Saturday, 01/03. Chart copy requested. Nursing provided with number to call report. No additional SW needs identified at this time. JHOAN is following to assist as needed with discharge planning.
[2022-01-01 15:13] VITALS: BP 127/60
--- NOTE | 2022-01-01 17:02 | NUR ---
diacharge : pt had dialysis this am. alert and oriented x4. on room air. pt stated she was ready to be discharge. 1530 pt discharge back to her facility. report given to lindsay orourke. iv and tele d/c all belongings with pt.
== END 2022-01-01 15:56 | DRG 177 ==
LOC: ER 19:05 → 3W 22:59 → EROBS 22:59 → 3W 23:48
PROVIDERS: Nurse Practitioner Family; Physician Assistant; ADMIT Hospitalist; ATTEND Hospitalist
PROC: 5A1D70Z Performance of Urinary Filtration, Intermittent, Less than 6 Hours Per Day (ICD-10-PCS; principal; 2021-12-28)
PROC: XW033E5 Introduction of Remdesivir Anti-infective into Peripheral Vein, Percutaneous Approach, New Technology Group 5 (ICD-10-PCS; 2021-12-29)
PROC: 5A1D70Z Performance of Urinary Filtration, Intermittent, Less than 6 Hours Per Day (ICD-10-PCS; 2022-01-01)
DX: U07.1 COVID-19 (principal); N18.6 End stage renal disease; J12.82 Pneumonia due to coronavirus disease 2019; E46 Unspecified protein-calorie malnutrition; I12.0 Hypertensive chronic kidney disease with stage 5 chronic kidney disease or end stage renal disease; E10.22 Type 1 diabetes mellitus with diabetic chronic kidney disease; E78.5 Hyperlipidemia, unspecified; K21.9 Gastro-esophageal reflux disease without esophagitis; E10.65 Type 1 diabetes mellitus with hyperglycemia; E87.5 Hyperkalemia; D69.6 Thrombocytopenia, unspecified; Z82.49 Family history of ischemic heart disease and other diseases of the circulatory system; Z86.73 Personal history of transient ischemic attack (TIA), and cerebral infarction without residual deficits; Z88.2 Allergy status to sulfonamides; Z88.8 Allergy status to other drugs, medicaments and biological substances; Z68.24 Body mass index [BMI] 24.0-24.9, adult
CPT/HCPCS: 10879; 32100